=== PATIENT | male | born 1955 | race Caucasian/White ===

== ENCOUNTER 2018-08-01 08:16 | Inpatient (IN) | payer OTHER ==
[2018-07-31 11:50] LABS: BASOPHILS # (AUTO) 0.2 (0.0-0.1); EOSINOPHILS # (AUTO) 1.5 (0.0-0.4); EOSINOPHILS % 16.2 % (0.0-6.0); HEMATOCRIT 41.1 % (38.2-49.6); HEMOGLOBIN 13.3 g/dL (14.0-18.0); LYMPHOCYTES # (AUTO) 1.7 (1.0-3.2); LYMPHOCYTES % 18.3 % (18.0-39.1); MEAN CORPUSCULAR HEMOGLOBIN 27.6 pg (28-32); MEAN CORPUSCULAR HGB CONC 32.4 g/dL (31-35); MEAN CORPUSCULAR VOLUME 85.3 fL (81-99); MONOCYTES # (AUTO) 0.8 (0.2-0.8); MONOCYTES % 8.1 % (4.4-11.3); NEUTROPHILS # (AUTO) 5.2 (2.1-6.9); NEUTROPHILS % 55.1 % (38.7-80.0); PLATELET COUNT 416 x10e3/uL (140-360); RED BLOOD COUNT 4.82 x10e6/uL (4.3-5.7); RED CELL DISTRIBUTION WIDTH 13.2 % (11.7-14.4)
[2018-07-31 12:14] LABS: ANION GAP 14.1 mmol/L (8-16); BLOOD UREA NITROGEN 16 mg/dL (7-26); BUN/CREATININE RATIO 18 (6-25); CALCIUM 10.3 mg/dL (8.4-10.2); CARBON DIOXIDE 28 mmol/L (22-29); CHLORIDE 97 mmol/L (98-107); EST GLOMERULAR FILTRATION RATE > 60 ML/MIN (60-); GLUCOSE 92 mg/dL (74-118); POTASSIUM 4.1 mmol/L (3.5-5.1); SODIUM 135 mmol/L (136-145)
[2018-07-31 14:21] LABS: EOSINOPHILS % (MANUAL) 14 % (0-7); LYMPHOCYTES % (MANUAL) 22 % (19-48); MONOCYTES % (MANUAL) 4 % (3.4-9.0); NEUTROPHILS % (MANUAL) 59 % (40-74); PLATELET ESTIMATE ADEQUATE; PLATELET MORPHOLOGY COMMENT NORMAL; RBC MORPHOLOGY COMMENT NORMAL
[~2018-08-01] VITALS: Ht 182.9 cm; Wt 90.7 kg
[~2018-08-01 08:16] MED LIST: AMLODIPINE BESY10 MG PO; ATORVASTATIN CA10 MG PO; FENOFIBRATE145 MG PO; LOSARTAN-HCTZ1 EAC2 PO
[2018-08-01] MEDS ORDERED: MINERAL OIL STERILE 10ML VIAL ONE (13:05)
[2018-08-01] MEDS ORDERED: HYDROMORPHONE 2MG/ML 2 MG/ML ML ONE ×2 (13:31→15:05)
[2018-08-01] MEDS ORDERED: NALOXONE HCL INJ 0.4 MG/ML AMP IV PRN (15:15)
[2018-08-01] MEDS ORDERED: ACETAMINOPHEN 1000 MG/100 ML IV PRN (15:15)
[2018-08-01] MEDS ORDERED: HYDROMORPHONE 0.2MG/ML-SOD CHL 30ML PCA SYRINGE IV ONE (15:21)
[2018-08-01 16:00] VITALS: BP_SYST 140; BP_SYST 142; BP_DIAS 92
--- NOTE | 2018-08-01 16:11 | Operative Report ---
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 OPERATIONS PERFORMED: 1. Exploratory laparotomy. 2. Sigmoid colon resection. MOLD CHANGER: Dr. Bryon Vo. ANESTHESIA: General endotracheal. COMPLICATIONS: None. ESTIMATED BLOOD LOSS: 50 mL. DESCRIPTION OF PROCEDURE: With the patient lying in bed in the supine position with the legs in stirrups, the abdomen was prepped with Betadine solution and draped in the usual manner. A lower midline incision was made. It was carried down through the subcutaneous tissue down to the midline fascia. The midline fascia was opened. The peritoneum was opened, and the abdomen was entered. Upon entering the abdominal cavity, examination revealed an apple-core lesion of the sigmoid colon in the distal sigmoid colon which was rather bulky, and it was stuck to the lateral gutter on the left side. It also appeared to be consistent with the preoperative diagnosis of an almost totally obstructing napkin-ring lesion of the sigmoid colon. Examination of the rest of the abdominal cavity revealed extensive metastatic disease to both lobes of the liver. Examination of the rest of the abdominal cavity revealed again some adenopathy in the area of the sigmoid colon where the rest of the abdominal exploration was otherwise within normal limits. There were no other palpable lesions of the bowel that could be felt. We decided to go ahead and proceed with a limited sigmoid colon resection basically to avoid the impending obstruction that the patient had as he obviously has advanced disease in the liver and will need to be given chemotherapy postoperatively. The left colon was then mobilized off of the lateral gutter, including the area where it was stuck onto the lateral gutter, and was swung medially. The ureter on the left side was identified and preserved. The descending colon was then mobilized without any difficulty and brought medially. The colon was then divided at the level of the distal descending colon with an application of a KAROLINA 75 stapler, and the mesentery appendix was then slowly and carefully taken down using the Enseal device. The inferior vessels were ligated with 0 silk. The colon below the lesion, about 5 cm below the lesion, was then divided with an application of the TA-60 stapler, and the specimen was sent for pathological examination. After this was done, the descending colon had been previously mobilized and it reached down to the pelvis without any difficulty. The anastomosis was performed with another application of the KAROLINA 75 stapler, bringing the descending colon down to the lower rectosigmoid junction. After this was done, the remaining opening was closed with another application of the TA-60 stapler. Gloves and instruments were changed. The anastomosis was then reinforced with interrupted sutures of 3-0 silk. The abdomen was then copiously irrigated. Perfect hemostasis was ascertained, and the abdomen was then closed in layers. The peritoneum was closed with a running suture of number 1 Vicryl. The midline fascia was closed with a running suture of number 1 PDS, and the skin was closed with clips. A dressing was applied. The sponge, lap and needle count was correct. The patient tolerated the procedure well and returned to the recovery room in stable condition. Job#: [id number] GIOVANNA
[2018-08-01] MEDS: PANTOPRAZOLE 40 MG 10ML VIAL IV SCH (16:46)
[2018-08-01] MEDS: SODIUM CHLORIDE 0.9% 250ML IRRIG IR SCH ×3 (16:46→23:42)
[2018-08-01 17:04] VITALS: BP 140/92
[2018-08-01] MEDS ORDERED: CEFOXITIN 1GM/ NS 50ML 50 ML IV SCH (18:00)
[2018-08-01] MEDS ORDERED: PROPOFOL IV EMULSION 10 MG/ML 20 ML VIAL ONE (18:04)
[2018-08-01] MEDS ORDERED: CEFOXITIN SOD 1 GM VIAL ONE (18:04)
[2018-08-01] MEDS ORDERED: SEVOFLURANE INHAL SOLN 250 ML PEN BTL ONE (18:04)
[2018-08-01] MEDS ORDERED: NEOSTIGMINE 5 MG/5ML SYR ONE (18:04)
[2018-08-01] MEDS ORDERED: GLYCOPYRROLATE INJ 1MG/ 5 ML SYR ONE (18:04)
[2018-08-01] MEDS ORDERED: LIDOCAINE HCL 2% LOCAL INJ 5 ML SDV VIAL INJ ONE (18:04)
[2018-08-01] MEDS ORDERED: ROCURONIUM BROMIDE 10 MG/ML 5ML VIAL ONE (18:04)
[2018-08-01] MEDS ORDERED: DEXAMETHASONE SOD PHOS INJ 4 MG/ML VIAL ONE (18:04)
[2018-08-01] MEDS ORDERED: ONDANSETRON HCL INJ 2 MG/ML VIAL ONE (18:04)
[2018-08-01] MEDS: NITROGLYCERIN 2% OINT 1 GM PKT TOP SCH ×2 (18:10→23:42)
[2018-08-01] MEDS: CEFOXITIN SOD 1 GM VIAL IV SCH ×2 (18:10→23:42)
[2018-08-01] MEDS: DEXTROSE 5%/LACTATED RINGERS 1,000 ML IV SCH (18:10)
[2018-08-01] MEDS ORDERED: FENTANYL CITRATE/PF 100MCG/2 ML INJ ONE (18:21)
[2018-08-01] MEDS ORDERED: MIDAZOLAM HCL 2 MG/2 ML VIAL ONE (18:21)
[2018-08-01 20:00] VITALS: BP 119/74
[2018-08-02] VITALS (9 sets, daily range): BP systolic 117–139; BP diastolic 71–78
[2018-08-02] MEDS: DEXTROSE 5%/LACTATED RINGERS 1,000 ML IV SCH ×3 (05:00→22:30)
[2018-08-02] MEDS: SODIUM CHLORIDE 0.9% 250ML IRRIG IR SCH ×5 (05:36→20:15)
[2018-08-02 05:53] LABS: BASOPHILS % 0.1 % (0.0-1.0); EOSINOPHILS % 0.1 % (0.0-6.0); HEMOGLOBIN 11.3 g/dL (14.0-18.0); LYMPHOCYTES # (AUTO) 1.3 (1.0-3.2); LYMPHOCYTES % 9.5 % (18.0-39.1); MEAN CORPUSCULAR HEMOGLOBIN 27.5 pg (28-32); MEAN CORPUSCULAR HGB CONC 32.3 g/dL (31-35); MEAN CORPUSCULAR VOLUME 85.2 fL (81-99); MONOCYTES # (AUTO) 1.1 (0.2-0.8); MONOCYTES % 7.7 % (4.4-11.3); NEUTROPHILS # (AUTO) 11.4 (2.1-6.9); NEUTROPHILS % 81.2 % (38.7-80.0); PLATELET COUNT 377 x10e3/uL (140-360); RED BLOOD COUNT 4.11 x10e6/uL (4.3-5.7); RED CELL DISTRIBUTION WIDTH 13.2 % (11.7-14.4)
[2018-08-02 06:08] LABS: ANION GAP 11.3 mmol/L (8-16); BLOOD UREA NITROGEN 10 mg/dL (7-26); BUN/CREATININE RATIO 13 (6-25); CALCIUM 9.3 mg/dL (8.4-10.2); CARBON DIOXIDE 28 mmol/L (22-29); CHLORIDE 101 mmol/L (98-107); CREATININE, SERUM 0.76 mg/dL (0.72-1.25); EST GLOMERULAR FILTRATION RATE > 60 ML/MIN (60-); GLUCOSE 147 mg/dL (74-118); POTASSIUM 4.3 mmol/L (3.5-5.1); SODIUM 136 mmol/L (136-145)
[2018-08-02] MEDS: NITROGLYCERIN 2% OINT 1 GM PKT TOP SCH ×3 (06:23→18:20)
[2018-08-02] MEDS: PANTOPRAZOLE 40 MG 10ML VIAL IV SCH (15:45)
[2018-08-03] VITALS (7 sets, daily range): BP systolic 119–154; BP diastolic 69–87
[2018-08-03] MEDS: NITROGLYCERIN 2% OINT 1 GM PKT TOP SCH ×4 (01:00→18:19)
[2018-08-03] MEDS: SODIUM CHLORIDE 0.9% 250ML IRRIG IR SCH ×6 (01:25→23:15)
[2018-08-03 05:27] LABS: BASOPHILS # (AUTO) 0.1 (0.0-0.1); BASOPHILS % 0.7 % (0.0-1.0); EOSINOPHILS # (AUTO) 0.7 (0.0-0.4); EOSINOPHILS % 5.3 % (0.0-6.0); HEMATOCRIT 32.3 % (38.2-49.6); HEMOGLOBIN 10.4 g/dL (14.0-18.0); LYMPHOCYTES # (AUTO) 1.6 (1.0-3.2); LYMPHOCYTES % 13.3 % (18.0-39.1); MEAN CORPUSCULAR HEMOGLOBIN 27.9 pg (28-32); MEAN CORPUSCULAR HGB CONC 32.2 g/dL (31-35); MEAN CORPUSCULAR VOLUME 86.6 fL (81-99); MONOCYTES % 7.9 % (4.4-11.3); NEUTROPHILS # (AUTO) 8.9 (2.1-6.9); NEUTROPHILS % 72.5 % (38.7-80.0); PLATELET COUNT 292 x10e3/uL (140-360); RED BLOOD COUNT 3.73 x10e6/uL (4.3-5.7); RED CELL DISTRIBUTION WIDTH 13.4 % (11.7-14.4)
[2018-08-03 05:46] LABS: ANION GAP 11.9 mmol/L (8-16); BLOOD UREA NITROGEN 8 mg/dL (7-26); BUN/CREATININE RATIO 12 (6-25); CALCIUM 9.2 mg/dL (8.4-10.2); CARBON DIOXIDE 29 mmol/L (22-29); CHLORIDE 102 mmol/L (98-107); CREATININE, SERUM 0.69 mg/dL (0.72-1.25); EST GLOMERULAR FILTRATION RATE > 60 ML/MIN (60-); GLUCOSE 105 mg/dL (74-118); POTASSIUM 3.9 mmol/L (3.5-5.1); SODIUM 139 mmol/L (136-145)
[2018-08-03] MEDS ORDERED: BISACODYL 10 MG SUPP PR NR (09:45)
[2018-08-03] MEDS: DEXTROSE 5%/LACTATED RINGERS 1,000 ML IV SCH ×2 (10:23→20:05)
[2018-08-03] MEDS: HYDROMORPHONE 0.2MG/ML-SOD CHL 30ML PCA SYRINGE IV PRN (13:35)
[2018-08-03] MEDS: PANTOPRAZOLE 40 MG 10ML VIAL IV SCH (15:11)
[2018-08-03] MEDS ORDERED: ACETAMINOPHEN 1000 MG/100 ML IV PRN (20:00)
[2018-08-03] MEDS: BISACODYL 10 MG SUPP PR SCH (21:10)
[2018-08-04] VITALS (8 sets, daily range): BP systolic 112–140; BP diastolic 72–78
[2018-08-04] MEDS: SODIUM CHLORIDE 0.9% 250ML IRRIG IR SCH ×6 (03:15→23:15)
[2018-08-04 05:24] LABS: BASOPHILS # (AUTO) 0.1 (0.0-0.1); BASOPHILS % 0.6 % (0.0-1.0); EOSINOPHILS # (AUTO) 0.7 (0.0-0.4); EOSINOPHILS % 5.5 % (0.0-6.0); HEMATOCRIT 30.9 % (38.2-49.6); HEMOGLOBIN 9.9 g/dL (14.0-18.0); LYMPHOCYTES # (AUTO) 1.3 (1.0-3.2); LYMPHOCYTES % 10.3 % (18.0-39.1); MEAN CORPUSCULAR HEMOGLOBIN 27.7 pg (28-32); MEAN CORPUSCULAR VOLUME 86.6 fL (81-99); MONOCYTES # (AUTO) 1.2 (0.2-0.8); NEUTROPHILS # (AUTO) 9.1 (2.1-6.9); NEUTROPHILS % 73.2 % (38.7-80.0); PLATELET COUNT 263 x10e3/uL (140-360); RED BLOOD COUNT 3.57 x10e6/uL (4.3-5.7); RED CELL DISTRIBUTION WIDTH 13.3 % (11.7-14.4)
[2018-08-04 05:36] LABS: ANION GAP 10.9 mmol/L (8-16); BLOOD UREA NITROGEN 7 mg/dL (7-26); BUN/CREATININE RATIO 10 (6-25); CALCIUM 9.3 mg/dL (8.4-10.2); CARBON DIOXIDE 29 mmol/L (22-29); CHLORIDE 102 mmol/L (98-107); CREATININE, SERUM 0.72 mg/dL (0.72-1.25); EST GLOMERULAR FILTRATION RATE > 60 ML/MIN (60-); GLUCOSE 109 mg/dL (74-118); POTASSIUM 3.9 mmol/L (3.5-5.1); SODIUM 138 mmol/L (136-145)
[2018-08-04] MEDS: NITROGLYCERIN 2% OINT 1 GM PKT TOP SCH ×4 (06:00→18:00)
[2018-08-04] MEDS: DEXTROSE 5%/LACTATED RINGERS 1,000 ML IV SCH ×2 (06:10→14:54)
[2018-08-04] MEDS: BISACODYL 10 MG SUPP PR SCH (08:29)
[2018-08-04] MEDS: HYDROMORPHONE 0.2MG/ML-SOD CHL 30ML PCA SYRINGE IV PRN (10:05)
[2018-08-04] MEDS: PANTOPRAZOLE 40 MG 10ML VIAL IV SCH (14:54)
[2018-08-05] VITALS (8 sets, daily range): BP systolic 117–133; BP diastolic 66–83
[2018-08-05] MEDS: DEXTROSE 5%/LACTATED RINGERS 1,000 ML IV SCH ×3 (01:26→21:30)
[2018-08-05] MEDS: SODIUM CHLORIDE 0.9% 250ML IRRIG IR SCH ×6 (03:15→23:15)
[2018-08-05] MEDS: NITROGLYCERIN 2% OINT 1 GM PKT TOP SCH ×4 (06:00→18:00)
[2018-08-05] MEDS: HYDROMORPHONE 0.2MG/ML-SOD CHL 30ML PCA SYRINGE IV PRN (11:12)
--- NOTE | 2018-08-05 13:18 | Diagnostic Imaging Report ---
EXAMINATION: CHEST SINGLE (PORTABLE) INDICATION: Low-grade fever. Abdominal surgery on 07/31/2018. Sigmoid colon cancer. ^LOW GRADE TEMPERATURE; S/P ABD SX ^[id number] ^[id number] COMPARISON: None FINDINGS: AP view TUBES and LINES: None. LUNGS: Lungs are not well inflated. Left basilar hazy and linear opacity. No evidence of pulmonary edema. PLEURA: No pleural effusion or pneumothorax. HEART AND MEDIASTINUM: The cardiomediastinal silhouette is unremarkable. BONES AND SOFT TISSUES: No acute osseous lesion. Soft tissues are unremarkable. UPPER ABDOMEN: Trace air under the right hemidiaphragm, not unexpected given recent surgery on 07/31/2018. IMPRESSION: Left basilar opacity may represent atelectasis or developing pneumonia in the appropriate clinical context. Trace air under the right hemidiaphragm, not unexpected given recent surgery on 07/31/2018. Signed by: DR. Hugo Heath MD on 08/05/2018 1:15 PM
[2018-08-05] MEDS: PANTOPRAZOLE 40 MG 10ML VIAL IV SCH (16:15)
[2018-08-06] VITALS (7 sets, daily range): BP systolic 99–121; BP diastolic 65–77
[2018-08-06] MEDS: HYDROCODONE/APAP 7.5MG-325MG 1 EA TAB PO PRN ×2 (00:22→13:00)
[2018-08-06] MEDS ORDERED: ACETAMINOPHEN 325 MG TAB PO PRN (00:30)
[2018-08-06] MEDS ORDERED: PIPER-TAZ 3.375 GM 50 ML IV SCH (02:00)
[2018-08-06] MEDS: SODIUM CHLORIDE 0.9% 250ML IRRIG IR SCH ×2 (03:15→07:15)
[2018-08-06 04:51] LABS: BASOPHILS % 0.3 % (0.0-1.0); EOSINOPHILS % 0.1 % (0.0-6.0); HEMATOCRIT 27.8 % (38.2-49.6); HEMOGLOBIN 9.2 g/dL (14.0-18.0); LYMPHOCYTES # (AUTO) 1.1 (1.0-3.2); LYMPHOCYTES % 8.5 % (18.0-39.1); MEAN CORPUSCULAR HEMOGLOBIN 27.9 pg (28-32); MEAN CORPUSCULAR HGB CONC 33.1 g/dL (31-35); MEAN CORPUSCULAR VOLUME 84.2 fL (81-99); MONOCYTES # (AUTO) 1.3 (0.2-0.8); MONOCYTES % 10.2 % (4.4-11.3); NEUTROPHILS % 80.4 % (38.7-80.0); PLATELET COUNT 192 x10e3/uL (140-360); RED CELL DISTRIBUTION WIDTH 13.4 % (11.7-14.4)
[2018-08-06] MEDS: NITROGLYCERIN 2% OINT 1 GM PKT TOP SCH ×4 (06:00→16:59)
[2018-08-06 07:05] LABS: CLARITY,URINE CLEAR (CLEAR); COLOR,URINE AMBER (YELLOW)
[2018-08-06 07:06] LABS: BILIRUBIN,URINE 1+ (NEGATIVE)
[2018-08-06 07:07] LABS: LEUKOCYTE ESTERASE ,URINE NEGATIVE (NEGATIVE); NITRITE,URINE NEGATIVE (NEGATIVE); PROTEIN,URINE DIPSTICK NEGATIVE (NEGATIVE)
[2018-08-06 07:08] LABS: KETONES,URINE NEGATIVE (NEGATIVE); URINE UROBILINOGEN 1 mg/dL (0.2 - 1)
[2018-08-06 07:24] LABS: BACTERIA,URINE FEW /HPF; EPITHELIAL CELLS,URINE FEW /LPF; RBC,URINE 0-5 /HPF (0-5); WBC,URINE (MAN) 0-5 /HPF (0-5)
[2018-08-06] MEDS: DEXTROSE 5%/LACTATED RINGERS 1,000 ML IV SCH ×2 (07:30→15:28)
[2018-08-06] MEDS: PIPER-TAZ 3.375 GM 50 ML IV SCH ×3 (08:26→17:47)
[2018-08-06] MEDS: PANTOPRAZOLE 40 MG 10ML VIAL IV SCH (15:28)
[2018-08-07] VITALS: BP_SYST 105; BP_SYST 110; BP_DIAS 67; BP_DIAS 71
[2018-08-07] MEDS: HYDROCODONE/APAP 7.5MG-325MG 1 EA TAB PO PRN ×2 (00:19→17:33)
[2018-08-07] MEDS: PIPER-TAZ 3.375 GM 50 ML IV SCH ×4 (00:43→17:29)
[2018-08-07] MEDS: DEXTROSE 5%/LACTATED RINGERS 1,000 ML IV SCH ×2 (02:17→12:41)
[2018-08-07] MEDS: NITROGLYCERIN 2% OINT 1 GM PKT TOP SCH ×4 (05:56→17:12)
[2018-08-07 08:28] VITALS: BP 113/71
[2018-08-07 12:34] VITALS: BP 117/72
[2018-08-07] MEDS: PANTOPRAZOLE 40 MG 10ML VIAL IV SCH (15:25)
[2018-08-07 16:23] VITALS: BP 115/70
== END 2018-08-07 18:28 | disposition home or self-care (01) | DRG 330 ==
LOC: OR 08:16 → PACU V 15:03 → MED/SURG 16:32
PROVIDERS: ADMIT Surgery; ATTEND Surgery
PROC: 0DTN0ZZ Resection of Sigmoid Colon, Open Approach (ICD-10-PCS; 2018-08-01)
PROC: 0WJP0ZZ Inspection of Gastrointestinal Tract, Open Approach (ICD-10-PCS; principal; 2018-08-01 10:30)
DX: C18.7 Malignant neoplasm of sigmoid colon (principal); C78.7 Secondary malignant neoplasm of liver and intrahepatic bile duct; I10 Essential (primary) hypertension; E78.5 Hyperlipidemia, unspecified
CPT/HCPCS: 36415; 71045; 80048; 81001; 85025; 86850; 86900; 87040; 87086; 88307; 88309; 88342; 93005; J0694; J1100; J2001; J2250; J2405; J2543

== ENCOUNTER → 2020-12-09 | Outpatient (CLI) | payer BC ==
[~2020-12-09] MED LIST changes: +IOPAMIDOL 370 MG/ML 200 ML INFUS..BTL INJ ONE; +SODIUM CHLORIDE 0.9% 50ML 50 ML ONE
[2020-12-09 09:03] LABS: BLOOD UREA NITROGEN 7 mg/dL (7-26); BUN/CREATININE RATIO 13 (6-25); CREATININE, SERUM 0.53 mg/dL (0.72-1.25); EST GLOMERULAR FILTRATION RATE > 60 ML/MIN (60-)
== END ==
LOC: CT 07:51
PROVIDERS: ATTEND Surgery
DX: Z85.038 Personal history of other malignant neoplasm of large intestine (principal)
CPT/HCPCS: 36415; 71260; 74177; 82565; 84520; Q9967